=== PATIENT | female | born 1990 | race Caucasian/White ===

== ENCOUNTER 2018-06-11 10:13 | Emergency (ER) | payer OTHER ==
[2018-06-11] MEDS: LORAZEPAM 1 MG TAB PO (11:03)
== END 2018-06-11 11:51 | disposition home or self-care (01) ==
LOC: FTE 11:51
DX: F41.9 Anxiety disorder, unspecified (principal); R06.02 Shortness of breath
CPT/HCPCS: 93005; 99283-25